=== PATIENT | female | born 1985 | race Asian ===

== ENCOUNTER 2017-03-29 05:43 | Inpatient (IN) | payer OTHER ==
[~2017-03-29] VITALS: Ht 147.3 cm; Wt 54.0 kg
[2017-03-29] MEDS ORDERED: OXYTOCIN 30U/ 0.9% NaCL 500ML 500 ML IV SCH (06:07)
[2017-03-29] MEDS ORDERED: LACTATED RINGERS 1,000 ML IV SCH ×2 (06:07→06:15)
[2017-03-29] MEDS ORDERED: LACTATED RINGERS 1,000 ML IVBOLUS ONE (06:30)
[2017-03-29] MEDS ORDERED: METOCLOPRAMIDE 5 MG/ML, 2ML IV ONE (06:30)
[2017-03-29] MEDS ORDERED: ONDANSETRON 2MG/ML, 2ML IVPush ONE (06:30)
[2017-03-29 06:42] LABS: HEMATOCRIT 35.7 % (34.6-47.8); HEMOGLOBIN 12.1 g/dL (11.7-16.4); WHITE BLOOD COUNT 6.3 x10^3/uL (3.4-10)
[2017-03-29] MEDS ORDERED: METOCLOPRAMIDE 5 MG/ML, 2ML ONE (07:30)
[2017-03-29] MEDS ORDERED: SODIUM CITRATE/CITRIC ACID 30 ML UDC ONE (07:30)
[2017-03-29] MEDS ORDERED: MISOPROSTOL 200 MCG TABLET ONE (07:30)
[2017-03-29] MEDS ORDERED: FENTANYL PF 100 MCG/2ML ONE (07:43)
[2017-03-29] MEDS ORDERED: CEFAZOLIN 1,000 MG ONE (07:53)
[2017-03-29] MEDS ORDERED: KETOROLAC 30 MG/1 ML ONE (07:53)
[2017-03-29] MEDS ORDERED: SODIUM CITRATE/CITRIC ACID 30 ML UDC PO ONE (08:00)
[2017-03-29] MEDS: LACTATED RINGERS 1,000 ML IV SCH ×4 (08:57→18:57)
[2017-03-29] MEDS: OXYTOCIN 30U/ 0.9% NaCL 500ML 500 ML IV SCH ×2 (08:57→18:57)
[2017-03-29] MEDS ORDERED: METHYLERGONOVINE 0.2 MG/ML IM PRN (09:00)
[2017-03-29] MEDS ORDERED: OXYTOCIN 30U/ 0.9% NaCL 500ML 500 ML ONE (09:00)
[2017-03-29] MEDS ORDERED: METOCLOPRAMIDE 5 MG/ML, 2ML IV PRN (09:00)
[2017-03-29] MEDS ORDERED: OXYcodone/APAP 5/325MG TABLET PO PRN (09:00)
[2017-03-29] MEDS ORDERED: MEPERIDINE/PF 100 MG/ML IVPush PRN (09:00)
[2017-03-29] MEDS ORDERED: ACETAMINOPHEN 325 MG TABLET PO PRN ×2 (09:00)
[2017-03-29] MEDS ORDERED: ONDANSETRON 2MG/ML, 2ML IV PRN (09:00)
[2017-03-29] MEDS ORDERED: morphine SULFATE 10 MG/ML, 1ML IVPush PRN (09:00)
[2017-03-29] MEDS ORDERED: MEPERIDINE/PF 50 MG/ML IM PRN (09:00)
[2017-03-29] MEDS ORDERED: morphine SULFATE 10 MG/ML, 1ML IV PRN (09:30)
[2017-03-29] MEDS ORDERED: FENTANYL PF 100 MCG/2ML IV PRN (09:30)
[2017-03-29] MEDS ORDERED: MEPERIDINE/PF 50 MG/ML IVPush PRN (09:30)
[2017-03-29] MEDS ORDERED: OXYcodone 5 MG/5 ML ORAL.SOL UDC PO PRN (09:30)
[2017-03-29] MEDS ORDERED: ONDANSETRON 2MG/ML, 2ML IVPush PRN (09:30)
[2017-03-29] MEDS: KETOROLAC 30 MG/1 ML IV SCH ×3 (09:30→21:41)
[2017-03-29] MEDS: PRENATAL VIT/IRON/FA 1 EACH TABLET PO SCH (10:00)
[2017-03-29 10:30] VITALS: BP 104/62
[2017-03-29] MEDS: OXYcodone/APAP 5/325MG TABLET PO PRN ×3 (12:26→21:41)
[2017-03-29 15:50] VITALS: BP 119/76
[2017-03-29 16:38] LABS: HEMATOCRIT 34.9 % (34.6-47.8); HEMOGLOBIN 11.8 g/dL (11.7-16.4); WHITE BLOOD COUNT 9.6 x10^3/uL (3.4-10)
[2017-03-29 19:10] VITALS: BP 105/69
[2017-03-29] MEDS: DOCUSATE 100 MG CAPSULE PO PRN (20:24)
[2017-03-30 00:20] VITALS: BP 103/66
[2017-03-30] MEDS: LACTATED RINGERS 1,000 ML IV SCH ×5 (00:57→16:57)
[2017-03-30] MEDS: KETOROLAC 30 MG/1 ML IV SCH ×4 (03:57→23:06)
[2017-03-30 03:59] VITALS: BP 107/72
[2017-03-30] MEDS: OXYTOCIN 30U/ 0.9% NaCL 500ML 500 ML IV SCH ×2 (04:57→14:57)
[2017-03-30 06:50] VITALS: BP 93/57
[2017-03-30] MEDS ORDERED: DIPH,PERTUSS(ACELL),TET VAC/PF NC IM-VACC ONE ×2 (08:09→08:30)
[2017-03-30] MEDS: PRENATAL VIT/IRON/FA 1 EACH TABLET PO SCH (08:25)
[2017-03-30] MEDS: DOCUSATE 100 MG CAPSULE PO PRN (08:25)
[2017-03-30] MEDS: OXYcodone/APAP 5/325MG TABLET PO PRN (18:37)
[2017-03-30] MEDS ORDERED: OXYcodone/APAP 5/325MG TABLET PO PRN (19:00)
[2017-03-30] MEDS ORDERED: ONDANSETRON 2MG/ML, 2ML IV PRN (19:00)
[2017-03-30] MEDS ORDERED: ACETAMINOPHEN 325 MG TABLET PO PRN ×2 (19:00)
[2017-03-30] MEDS ORDERED: morphine SULFATE 10 MG/ML, 1ML IVPush PRN (19:00)
[2017-03-30 19:20] VITALS: BP 113/77
[2017-03-31] MEDS: LACTATED RINGERS 1,000 ML IV SCH ×4 (00:57→10:57)
[2017-03-31] MEDS: OXYTOCIN 30U/ 0.9% NaCL 500ML 500 ML IV SCH ×2 (00:57→10:57)
[2017-03-31] MEDS ORDERED: OXYC-302 PO (05:21)
[2017-03-31] MEDS ORDERED: IBUP-1222 PO (05:23)
[2017-03-31] MEDS ORDERED: DOCU-131 PO (05:24)
[2017-03-31] MEDS: KETOROLAC 30 MG/1 ML IV SCH (05:43)
[2017-03-31] MEDS ORDERED: PRENATAL VIT/IRON/FA 1 EACH TABLET ONE (07:40)
[2017-03-31] MEDS: OXYcodone/APAP 5/325MG TABLET PO PRN (07:44)
[2017-03-31] MEDS: DOCUSATE 100 MG CAPSULE PO PRN (07:44)
[2017-03-31 07:45] VITALS: BP 119/76
[2017-03-31] MEDS ORDERED: PRENATAL VIT/IRON/FA 1 EACH TABLET PO SCH (09:00)
== END 2017-03-31 13:00 | disposition home or self-care (01) | DRG 765 ==
LOC: EDIP 05:43 → LDIP 05:46 → 2NW 11:02
PROVIDERS: ADMIT Obstetrics & Gynecology; ATTEND Obstetrics & Gynecology
PROC: 10D00Z1 Extraction of Products of Conception, Low, Open Approach (ICD-10-PCS; principal; 2017-03-29)
DX: O34.211 Maternal care for low transverse scar from previous cesarean delivery (principal); O36.5920 Maternal care for other known or suspected poor fetal growth, second trimester, not applicable or unspecified; O24.424 Gestational diabetes mellitus in childbirth, insulin controlled; Z37.0 Single live birth; Z3A.26 26 weeks gestation of pregnancy
CPT/HCPCS: 36415; 82962; 85025; 86850; 86900; 90715; J0690; J1885; J3010; J2590; J2765; J7120

== ENCOUNTER 2018-05-14 20:39 | Emergency (ER) | payer OTHER ==
[~2018-05-14] VITALS: Ht 154.9 cm; Wt 48.9 kg
[~2018-05-14 20:39] MED LIST: DOCU-131 PO; IBUP-1222 PO; OXYC-302 PO
[2018-05-14 20:43] VITALS: BP 116/77
[2018-05-14 21:29] LABS: RAPID INFLUENZA A Negative (Negative); RAPID INFLUENZA B Negative (Negative)
== END 2018-05-14 21:37 | disposition home or self-care (01) ==
LOC: ED 21:31
DX: R50.9 Fever, unspecified (principal)
CPT/HCPCS: 87400; 99284

== ENCOUNTER 2018-08-21 07:28 | Emergency (ER) | payer OTHER ==
[~2018-08-21] VITALS: Ht 157.5 cm; Wt 48.3 kg
[2018-08-21 07:39] VITALS: BP 120/65
--- NOTE | 2018-08-21 07:57 | NUR ---
32 Y/O FEMALE PRESENTS TO ED WITH C/O FEVER. PER "SHE GOT A FEVER THIS MORNING. SHE DOESN'T HAVE A COUGH." NO C/O N/V/D, TRAUMA, SYNCOPE, CP, SOB. NO ACUTE DISTRESS NOTED.
[2018-08-21 09:05] LABS: RAPID INFLUENZA A Negative (Negative); RAPID INFLUENZA B Negative (Negative)
--- NOTE | 2018-08-21 09:59 | NUR ---
Patient/Caregiver given discharge instructions and they have confirmed that they understand the instructions. Patient ambulatory with steady gait. PT LEFT WITH ALL PERSONAL BELONGINGS.
== END 2018-08-21 10:03 | disposition home or self-care (01) ==
LOC: ED 08:33
DX: R50.9 Fever, unspecified (principal)
CPT/HCPCS: 87400; 99283

== ENCOUNTER 2018-10-30 13:01 | Emergency (ER) | payer OTHER ==
[~2018-10-30] VITALS: Ht 157.5 cm; Wt 46.6 kg
--- NOTE | 2018-10-30 15:31 | NUR ---
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
[2018-10-30] MEDS ORDERED: BIRTH CONTROL PILL (15:33)
[2018-10-30 15:34] LABS: BASOPHILS # (AUTO) 0.01 x10^3/uL (0-0.1); BASOPHILS % (AUTO) 0 % (0-1); EOSINOPHILS # (AUTO) 0.01 x10^3/uL (0-0.4); EOSINOPHILS % (AUTO) 0 % (1-7); LYMPHOCYTES # (AUTO) 0.87 x10^3/uL (1-3.4); LYMPHOCYTES % (AUTO) 15 % (22-44); MD NO; MEAN CORPUSCULAR HEMOGLOBIN 32.9 pg (27.0-34.8); MEAN CORPUSCULAR HGB CONC 34.1 g/dL (32.4-35.8); MEAN CORPUSCULAR VOLUME 96.5 fL (80-100); MEAN PLATELET VOLUME 7.3 fL (7.4-10.4); MONOCYTES # (AUTO) 0.31 x10^3/uL (0.2-0.8); MONOCYTES % (AUTO) 5 % (2-9); NEUTROPHILS # (AUTO) 4.76 x10^3/uL (1.8-6.8); NEUTROPHILS % (AUTO) 80 % (42-75); PLATELET COUNT 220 x10^3/uL (130-400); RED BLOOD COUNT 4.34 x10^6/uL (3.82-5.3); RED CELL DISTRIBUTION WIDTH 15.2 % (9.6-15.2)
--- NOTE | 2018-10-30 15:36 | NUR ---
PT TO ED WITH FRIEND FOR NAUSEA, VOMITING X1 TWO DAYS AGO AND AND "BLACKISH" LOOSE STOOLS STARTING YESTERDAY AM. CONNECTED TO MONITORS. VSS. PIT ORDRES COMPLETE. AWAITING EDMD ASSESSMENT.
[2018-10-30 15:39] LABS: ALANINE AMINOTRANSFERASE 25 U/L (12-78); ALBUMIN 3.6 g/dL (3.4-5.0); ANION GAP 9 mmol/L (5-15); CALCIUM 8.4 mg/dL (8.5-10.1); CHLORIDE 108 mmol/L (98-107); CREATININE 0.66 mg/dL (0.55-1.02)
[2018-10-30 15:39] LABS: CLOSTRIDIUM DIFFICILE ANTIGEN NEGATIVE; CLOSTRIDIUM DIFFICILE TOXIN NEGATIVE (Negative)
[2018-10-30 15:43] LABS: ALKALINE PHOSPHATASE 40 U/L (45-117); BILIRUBIN,TOTAL 0.3 mg/dL (0.2-1.0); TOTAL PROTEIN 7.4 g/dL (6.4-8.2)
[2018-10-30 16:42] VITALS: BP 116/79
--- NOTE | 2018-10-30 16:42 | NUR ---
all resutls back at this time. chart up for recheck. pt resting in room with rriend at bedside. vss. no needs expressed. call light within reach.
--- NOTE | 2018-10-30 16:45 | NUR ---
EDMD TO BEDSIDE TO UPDATE ON POC. AWAITING DISPO.
== END 2018-10-30 17:17 | disposition home or self-care (01) ==
LOC: ED 16:12
DX: R11.2 Nausea with vomiting, unspecified (principal); E86.0 Dehydration; R19.7 Diarrhea, unspecified
CPT/HCPCS: 36415; 74021; 80053; 84703; 85025; 87324; 89055; 99284

== ENCOUNTER → 2019-06-17 | Outpatient (CLI) | payer OTHER ==
[~2019-06-17] MED LIST changes: +BIRTH CONTROL PILL
== END | disposition home or self-care (01) ==
LOC: CFH 13:58
PROVIDERS: ATTEND Family Medicine
DX: N64.4 Mastodynia (principal)
CPT/HCPCS: 77066; G0279